=== PATIENT | male | born 1950 | race Caucasian/White ===

== ENCOUNTER → 2022-03-19 | Outpatient (CLI) | payer OTHER | LOC: COL.RAD 10:09 | DX: R26.89 Other abnormalities of gait and mobility (principal); R20.0 Anesthesia of skin ==

== ENCOUNTER → 2022-03-20 | Outpatient (CLI) | payer OTHER | LOC: COL.RAD 09:59 | DX: M47.816 Spondylosis without myelopathy or radiculopathy, lumbar region (principal); M48.061 Spinal stenosis, lumbar region without neurogenic claudication; M51.26 Other intervertebral disc displacement, lumbar region; M48.02 Spinal stenosis, cervical region ==

== ENCOUNTER → 2022-05-13 | Outpatient (CLI) | payer OTHER | LOC: COL.RAD 11:52 | DX: M48.02 Spinal stenosis, cervical region (principal) ==